=== PATIENT | female | born 1970 | race Caucasian/White ===

== ENCOUNTER 2024-09-23 09:56 | Emergency (ER) | payer OTHER ==
[~2024-09-23] VITALS: Ht 149.9 cm; Wt 65.8 kg
[2024-09-23] MEDS ORDERED: ZYPREXA5 MG PO (10:33)
[2024-09-23] MEDS ORDERED: ZYPREXA10 MG PO (10:33)
[2024-09-23] MEDS ORDERED: LIOTHYRONINE SO5 MCG (10:35)
[2024-09-23] MEDS ORDERED: SODIUM CHLORIDE 0.9% 1,000 ML IV ONE ×2 (11:00→13:30)
[2024-09-23] MEDS ORDERED: ondansetron HCL 4 MG/2 ML VIAL IV ONE (11:00)
[2024-09-23] MEDS ORDERED: HYDROmorphone HCL 1 MG/ML SYR IV PRN (11:00)
[2024-09-23 11:10] LABS: BASOPHILS 1.7 % (0-2); EOSINOPHILS 0.1 % (0-6); HEMATOCRIT 42.4 % (35.0-50.0); HEMOGLOBIN 14.4 g/dL (12.0-18.0); MCH 29.9 (27-36); MCV 87.9 fl (81-99); NEUTROPHILS 56.2 % (39-80); PLATELET COUNT 194 K/uL (140-440); RBC 4.82 M/ul (4.3-5.7); RDW 12.5 (10.5-15.0)
[2024-09-23 11:34] LABS: ALBUMIN 3.7 g/dL (3.4-5.0); ALBUMIN/GLOBULIN RATIO 0.97 (1.1-2.4); ANION GAP 11.7 (7-21); BILIRUBIN, TOTAL 0.7 ng/dL (0.2-1.0); BUN/CREATININE RATIO 19.4 (6.0-28.6); CALCIUM 9.4 mg/dL (8.5-10.1); CREATININE, SERUM 0.67 mg/dL (0.55-1.02); MAGNESIUM 2.2 mg/dL (1.8-2.4); POTASSIUM 4.7 mmol/L (3.5-5.1); PROTEIN, TOTAL 7.5 g/dL (6.4-8.2)
[2024-09-23] MEDS ORDERED: droPERidol 5 MG/2 ML VIAL IV ONE (12:15)
[2024-09-23] MEDS ORDERED: ONDANSETRON ODT8 MG PO (13:33)
[2024-09-23] MEDS ORDERED: PROMETHAZINE HC25 M1 PO (13:33)
[2024-09-23 14:35] VITALS: BP 104/77
== END 2024-09-23 14:37 | disposition home or self-care (01) ==
LOC: ED 09:56
PROVIDERS: Emergency Medicine
DX: A08.4 Viral intestinal infection, unspecified (principal); Z79.899 Other long term (current) drug therapy
CPT/HCPCS: 36415; 74177; 80053; 83735; 84703; 85025; 96375; 99284-25; J1171; J1790; J2405; J7030; Q9967